=== PATIENT | female | born 1935 | race Caucasian/White ===

== ENCOUNTER 2019-11-24 15:00 | Outpatient (RCR) | payer MEDICARE, OTHER, SELFPAY ==
--- NOTE | 2019-11-16 16:40 | OTOPEVAL ---
Thank you for referring Gina Aguilar to [facility]. Please review, sign, date and return this plan of care JESSICA. I agree with and certify that the following plan of care is medically necessary. Referring Physician Date Admitting Provider: Attending Provider: Franky Morales, Referring Provider: *OT Outpatient Evaluation Start: 11/16/19 15:00 Freq: Status: Active Protocol: Document 11/16/19 15:00 [facility] (Rec: 11/16/19 16:07 [facility] [id number]) Therapy Assessment Status Assessment Status Assessment Status Evaluation Outpatient Past Medical History Neurological History Hx Cerebrovascular Accident (CVA) Yes: 09/03/19 Cardiovascular History Hx Hypertension Yes Endocrine History Hx Diabetes Yes Evaluation Information Problem Diagnosis decreased coordination Onset 09/03/19 Cause Acute right CVA Subjective Information Patient had a CVA on 09/03/19 Query Text:As Reported By Patient/ when she was on her way to Family [facility]. Patient was discharged home on September 04, 2019. Patient reports that she has waited to initiate rehab secondary to COVID. 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 Patient also mentions concerns with dexterity in her L hand, including opening water bottles, clasping snaps, etc. Patient reports that she is driving in town. Patient reports that she has been doing a little of bit of cooking and cleaning since returning home. She is independent with all self care tasks. Prior Level of Function Activity Level (Last 3 Months) Hand Dominance Right Activity of Daily Living Ability Independent Indoor/Home Mobility Independent Community Mobility Independent Stairs Ability Independent Functional Cognition (Planning, Shopping Independent , Taking Medications) Cooking Yes Cleaning Yes Laundry Yes Shopping Yes Driving Yes Home Setting Home Type
--- NOTE | 2019-11-21 12:27 | PTOPEVAL ---
Thank you for referring Gina Aguilar to [facility]. Please review, sign, date and return this plan of care [facility]. I agree with and certify that the following plan of care is medically necessary. Referring Physician Date Admitting Provider: Attending Provider: Franky Morales, Referring Provider: *PT Outpatient Evaluation Start: 11/16/19 16:06 Freq: Status: Active Protocol: Document 11/16/19 16:07 [facility] (Rec: 11/16/19 16:50 [facility] [id number]) Therapy Assessment Status Assessment Status Assessment Status Evaluation Evaluation Information Problem Diagnosis acute right MCA stroke Onset 09/03/19 Subjective Information Pt. reports she was at [facility] Query Text:As Reported By Patient/ on 09/03/19 and states that she Family had developed some confusion. She reports she was admitted to [facility] and was discharged the next day. Pt. reports that she returned home without rehab. She reports that do to the pandemic she has avoided coming to rehab. She states that she is now ready. She reports that she lives alone but has noticed some left sided weakness. She reports that her goal is to improve her strength. 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 Hand Dominance Right Activity of Daily Living Ability Independent Indoor/Home Mobility Independent Community Mobility Independent Stairs Ability Independent Functional Cognition (Planning, Shopping Independent , Taking Medications) Cooking Yes Cleaning Yes Laundry Yes Shopping Yes Driving Yes Pain Assessment Self Report Self Report Pain Level 0 Pain Score Pain Score 0: Self Report Lower Extremity Muscle Strength Testing General Lower Extremity Strength Gross Lower Extremity Strength bilateral hip flexion 4/5, bilateral knee flexion 4/5, bilateral knee extension 4+/5, right ankle dorsiflexion 4+/5 , left ankle dorsiflexion 4-/5 Special Tests-Lower Extremity Knee Special Tests Knee Special Tests Comments P
--- NOTE | 2019-11-24 15:52 | STOPEVAL ---
Outpatient Speech Therapy Initial Evaluation: Thank you for referring Gina Aguilar to [facility]. Speech therapy is recommended x2 week 4. Please review, sign, date and return this plan of care JESSICA. I agree with and certify that the following plan of care is medically necessary. Referring Physician Date Attending Provider: Franky Morales, *ST Outpatient Evaluation Start: 11/24/19 15:00 Freq: Status: Active Protocol: Document 11/24/19 15:00 [facility] (Rec: 11/24/19 15:51 [facility] [id number]) Therapy Assessment Status Assessment Status Assessment Status Evaluation Outpatient Past Medical History Neurological History Hx Cerebrovascular Accident (CVA) Yes: 09/03/19 Cardiovascular History Hx Hypertension Yes Hematological History Hx Hematological Disorders No Significant History Endocrine History Hx Diabetes Yes Evaluation Information Problem Diagnosis (R) MCA CVA Onset 09-03-2019 Subjective Information pleasant and cooperative; goal Query Text:As Reported By Patient/ oriented Family Prior Level of Function Activity Level (Last 3 Months) 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 Hand Dominance Right Activity of Daily Living Ability Independent Indoor/Home Mobility Independent Community Mobility Independent Stairs Ability Independent Functional Cognition (Planning, Shopping Independent , Taking Medications) Cooking Yes Cleaning Yes Laundry Yes Shopping Yes Driving Yes Home Setting Home Type House Living Situation Alone Support Available Local Family Support Prior Swallow Level Prior Intake Method Oral Prior Diet Regular (Level 7 Diet) Prior Liquid Consistency Thin (Level 0 Diet) Prior Cognition/Communication Prior Communication Level No Impairment Prior Cognitive Function Able to Function Independently Prior Ability to Handle Finances Independent,Able to Write Checks Pain Assessment Timing of Pain Assessment Timing of Pain Assessment Assessment Self Report Self Report Pain Level 0 Pain Scale Pain Scale Used Numeric (1 - 10) Pain Score Pain Score 0: Self Report Cognitive Evaluation Orientation/Memory Assessment Immediate Memory 100 Query Text:% Accuracy Recent Memory 100 Query Text:% Accuracy Remote Memory 100
[2019-11-29 16:00] VITALS: O2SAT 60
[2019-12-04 15:11] VITALS: O2SAT 75
[2019-12-08 13:54] VITALS: O2SAT 80
[2019-12-11 17:49] VITALS: O2SAT 90
--- NOTE | 2019-12-19 08:57 | STOPEVAL ---
OUTPATIENT SPEECH THERAPY DISCHARGE: Thank you for referring Gina Aguilar to [facility]. Please review, sign, date and return this discharge plan JESSICA. I agree with discharge from speech therapy at this time. Referring Physician Date Attending Provider: Franky Morales, *ST Outpatient Discharge: Start: 11/24/19 15:00 Freq: Status: Discharge Protocol: Document 12/19/19 08:49 [facility] (Rec: 12/19/19 08:57 [facility] [id number]) Therapy Assessment Status Assessment Status Assessment Status Discharge Outpatient Past Medical History Neurological History Hx Cerebrovascular Accident (CVA) Yes: 09/03/19 Cardiovascular History Hx Hypertension Yes Hematological History Hx Hematological Disorders No Significant History Endocrine History Hx Diabetes Yes Pain Assessment Self Report Self Report Pain Level 0 Pain Score Pain Score 0: Self Report ST Clinical Summary Clinical Summary ST Clinical Summary Overall, pt presents with functional cognitive linguistic function. Pt attended 6 outpatient speech therapy sessions and as well as consistently completed HEP for cognition. 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 She states that she has returned to managing her own finances, medicine, and overall household. She desires discharge at this time as she feels that she is WFL and near her baseline. She states that she has her daughter who can assist her if she needs it . Pt and her daughter were instructed on resources to continue to exercise organization and reasoning. Both verbalized understanding. Pt will be discharged at this time. ST Services Indicated No Rehabilitation Potential Excellent Persons Assisting in Goal Achievement pt and daughter. Patient/Caregiver Informed of Benefits/ Yes Risks of Rehabilitation Patient/Caregiver Participated in Plan Yes of Care Patient/Caregiver Agreed with Problem Yes List/POC/Goals
== END 2019-12-14 10:36 | disposition home or self-care (01) ==
LOC: CHSST 15:00
PROVIDERS: PCP Family Medicine; Visit Provider Family Medicine
DX: I63.511 Cerebral infarction due to unspecified occlusion or stenosis of right middle cerebral artery (principal); I69.391 Dysphagia following cerebral infarction
CPT/HCPCS: 96125; 97110; 97112; 97129; 97130; 97161; 97165; 97530